=== PATIENT | female | born 1995 | race Caucasian/White ===

== ENCOUNTER 2017-07-16 19:43 | Emergency (ER) | payer BC ==
[2017-07-16 20:43] VITALS: BP 114/68; PULSE 60; RESP 17; TEMP 97.9
--- NOTE | 2017-07-16 21:29 | ED ---
General Adult HPI - General Chief complaint: Wound/Laceration Stated complaint: finger lac Time Seen by Provider: 07/16/17 21:07 Source: patient Mode of arrival: ambulatory Limitations: no limitations - History of Present Illness Initial comments: 21-year-old female presents for a laceration to the fifth digit this evening. She states she was opening a can of cat food when the laceration occurred. She then immediately came to the emergency department. She states she is up-to- date on her tetanus. She states she has full range of motion of the fifth digit. She does complain of a popping sensation when bending her fifth digit. Patient has good capillary refill as well as full sensation in the fifth digit. - Related Data Home Medications Medication Instructions Recorded Confirmed No Known Home Medications [No 07/16/17 07/16/17 Known Home Medications] Allergies Allergy/AdvReac Type Severity Reaction Status Date / Time No Known Allergies Allergy Verified 07/16/17 20:43 Review of Systems ROS Statement: Those systems with pertinent positive or pertinent negative responses have been documented in the HPI. ROS Other: All systems not noted in ROS Statement are negative. Past Medical History Past Medical History: No Reported History History of Any Multi-Drug Resistant Organisms: None Reported Additional Past Surgical History / Comment(s): wisdom teeth Past Psychological History: No Psychological Hx Reported Smoking Status: Never smoker Past Alcohol Use History: Occasional Past Drug Use History: None Reported General Exam Limitations: no limitations General appearance: alert, in no apparent distress Respiratory exam: Present: normal lung sounds bilaterally. Absent: respiratory distress, wheezes, rales, rhonchi, stridor Cardiovascular Exam: Present: regular rate, normal rhythm, normal heart sounds. Absent: systolic murmur, diastolic murmur, rubs, gallop, clicks Extremities exam: Present: full ROM, other (1 cm laceration to the palmar aspect of the 5th digit of the left hand) Course Vital Signs 07/16/17 20:40 Temperature 97.9 F Pulse Rate 60 Respiratory 17 Rate Blood Pressure 114/68 O2 Sat by Pulse 100 Oximetry Procedures - Procedures Initial comment: Area around the laceration on the palmar aspect of the fifth digit of the left hand was cleaned with chlorhexidine. Area was then numbed with 3 mL of 1% lidocaine. Area was further cleaned with sterile water and chlorhexidine. Sterile technique was used to apply 4 simple interrupted sutures to the laceration. Neurovascular exam was intact before and after suturing. Medical Decision Making - Medical Decision Making 21-year-old female presented to the emergency department for a laceration on the palmar aspect of the fifth digit of the left hand. Patient states this was done while opening a can. Patient states her tetanus is up to date. The wound was cleaned and inspected for any damage to internal structures and none was found. The wound was then sutured with 4 simple interrupted sutures. Patient is currently on minocycline for acne and the wound was clean so no additional antibiotics were given. Patient was told to follow-up in 10 days to have suture removed or earlier if she noted any signs of infection. She was educated on these signs including redness swelling, heat, discharge, or red streaking up the arm. Disposition Clinical Impression: Laceration Disposition: HOME SELF-CARE Condition: Good Instructions: Care For Your Stitches (ED), Laceration (ED) Additional Instructions: Please return to the emergency department if you notice any increased swelling, redness, discharge, or experience a fever. Please return in 10 days to have stitches removed. Referrals: Bronson Blanco DO [Primary Care Provider] - 1-2 days Time of Disposition: 22:11
== END 2017-07-16 22:15 | disposition home or self-care (01) ==
LOC: EC 19:43
DX: S61.217A Laceration without foreign body of left little finger without damage to nail, initial encounter (principal); L70.9 Acne, unspecified; W26.8XXA Contact with other sharp object(s), not elsewhere classified, initial encounter; Y93.89 Activity, other specified
CPT/HCPCS: 12001; 99282

== ENCOUNTER → 2020-06-03 | Outpatient (CLI) | payer BC ==
--- NOTE | 2020-06-03 09:49 | XR ---
EXAMINATION TYPE: XR knee complete LT DATE OF EXAM: 06/03/2020 CLINICAL HISTORY: Pain after ski strain injury 3 weeks ago TECHNIQUE: Three views of the left knee are obtained. COMPARISON: None. FINDINGS: There is no acute fracture/dislocation evident in left knee. The tri-compartment joint sp aces appear within normal limits. The overlying soft tissue appears unremarkable. IMPRESSION: As above.
== END | disposition home or self-care (01) ==
LOC: RADXRYALE 09:16
PROVIDERS: ATTEND Family Medicine
DX: M25.562 Pain in left knee (principal)